=== PATIENT | male | born 1980 | race Caucasian/White ===

== ENCOUNTER 2017-06-14 02:31 | Emergency (ER) | payer MEDICAID, OTHER ==
[~2017-06-14] VITALS: Ht 172.7 cm; Wt 93.0 kg
[2017-06-14 02:35] VITALS: BP 128/98
== END 2017-06-14 10:27 | disposition left against medical advice (07) ==
LOC: ER 02:31
DX: Z53.21 Procedure and treatment not carried out due to patient leaving prior to being seen by health care provider (principal)